=== PATIENT | male | born 1980 | race Caucasian/White ===

== ENCOUNTER 2023-05-08 10:21 | Emergency (ER) | payer OTHER, MEDICAID, SELFPAY ==
[2023-05-08 10:28] VITALS: BP 127/76; PULSE 76; RESP 17; TEMP 36.4; O2SAT 99; BMI 27.4
--- NOTE | 2023-05-08 10:32 | PC.NURSE ---
Patient reports he takes medication for BP. Does not know the name, obtains is by mail via the [employer].
--- NOTE | 2023-05-08 11:17 | ED.SKABFB ---
HPI - Skin/Abscess/Foreign Bdy <Brittney Pinzon PA-C - Last Filed: 05/08/23 11:24> General Chief complaint: Skin/Abscess/Foreign Body Stated complaint: Rash on face and chest Time Seen by Provider: 05/08/23 10:37 Source: patient Mode of arrival: Ambulatory History of Present Illness HPI narrative: 42-year-old male with no reported past medical history presents to the ED with several days of facial and chest rash. 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 Patient is here with his son relative is translating for the patient. 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 They state that the rash has been ongoing for the last few days, aggravated by exposure to the dust. There is also a small spot of the same rash on his chest. Patient describes the rash as itchy. Patient denies fever, chills, chest pain, shortness of breath, tongue swelling, lip swelling, throat swelling. Patient states that he might be allergic to some medicines, however does not recall what they are. Related Data Previous Rx's Medication Instructions Recorded triamcinolone acetonide 0.05 % 1 applic topical TID #110 grams 05/08/23 topical ointment Allergies Allergy/AdvReac Type Severity Reaction Status Date / Time No Known Drug Allergies Allergy Verified 05/08/23 10:32 Review of Systems <Brittney Pinzon PA-C - Last Filed: 05/08/23 11:24> Review of Systems ROS Unobtainable: All systems reviewed & are unremarkable except as noted in HPI and below Constitutional Constitutional: Denies chills, Denies fatigue, Denies fever(s), Denies frequent falls, Denies lethargy and Denies weakness Eyes Eyes: Denies change in vision, Denies eye discharge, Denies irritation and Denies loss of vision ENT Ears, Nose, Mouth, and Throat: Denies change in voice, Denies dizziness, Denies neck pain, Denies sore throat and Denies throat swelling Cardiovascular Cardiovascular: Denies chest pain, Denies irregular heart rhythm, Denies lightheadedness, Denies palpitations, Denies dyspnea, Denies dyspnea on exertion and Denies orthopnea Respiratory Respiratory: Denies cough, Denies dyspnea, Denies dyspnea on exertion and Denies wheezing Gastrointestinal Gastrointestinal: Denies abdominal pain, Denies change in bowel habits, Denies diarrhea, Denies nausea and Denies vomiting Genitourinary Genitourinary: Denies hematuria, Denies flank pain, Denies urinary incontinence and Denies urinary urgency Musculoskeletal Musculoskeletal: Denies back pain, Denies muscle weakness, Denies neck pain, Denies numbness and Denies tingling Integumentary/Breasts Skin/Breast: Denies pruritus, Denies erythema, Reports rash and Denies wounds Neurologic Neurologic: Denies behavioral changes, Denies confusion, Denies dizziness, Denies frequent falls, Denies loss of vision, Denies numbness, Denies tingling and Denies weakness Psychiatric Psychiatric: Denies anxiety, Denies behavioral changes, Denies confusion, Denies depression, Denies homicidal ideation and Denies suicidal ideation Endocrine Endocrine: Denies fatigue, Denies flushing and Denies palpitations Hematologic/Lymphatic Hematologic/Lymphatic: Denies easy bruising Allergic/Immunologic Allergic/Immunologic: Denies urticaria, Denies throat swelling and Denies wheezing Patient History <Brittney Pinzon PA-C - Last Filed: 05/08/23 11:24> Social History Smoking Status: Never smoker Smoking Status: Never smoker alcohol intake frequency: holidays/special occasions only Substance Use Type: does not use Exam <Brittney Pinzon PA-C - Last Filed: 05/08/23 11:24> Narrative Exam Narrative: Const General:?cooperative, healthy appearing and comfortable [facility] Head:?normal to inspection Ears:?hearing grossly normal bilaterally Nose:?external nose normal Face and sinus:?normal facial exam and sinuses nontender Mouth:?oral mucosae normal Throat:?posterior oropharynx normal Eyes General:?appearance normal, both eyes and all related structures Neck Neck:?normal visual inspection and no lymphadenopathy noted Resp Effort & Inspection:?normal respiratory effort Auscultation:?clear to auscultation bilaterally Cardio Rate:?regular rate Rhythm:?regular rhythm Integumentary There is a small area of rash lateral to the lateral canthus of bilateral eyes. There is also a small area of rash on the chest. There are no overt signs of infection. No discharge. Neuro General:?patient alert, patient awake and patient oriented x3 Initial Vital Signs Initial Vital Signs: Vital Signs Temperature 97.5 F L 05/08/23 10:28 Pulse Rate 76 05/08/23 10:28 Respiratory Rate 17 05/08/23 10:28 Blood Pressure 127/76 05/08/23 10:28 Pulse Oximetry 99 05/08/23 10:28 Oxygen Delivery Method Room Air 05/08/23 10:28 <Kassandra Wilcox MD - Last Filed: 05/08/23 19:07> Initial Vital Signs Initial Vital Signs: Vital Signs Temperature 97.5 F L 05/08/23 10:28 Pulse Rate 76 05/08/23 10:28 Respiratory Rate 17 05/08/23 10:28 Blood Pressure 127/76 05/08/23 10:28 Pulse Oximetry 99 05/08/23 10:28 Oxygen Delivery Method Room Air 05/08/23 10:28 Course <Brittney Pinzon PA-C - Last Filed: 05/08/23 11:24> Vital Signs Vital signs: Vital Signs - 8 hr 05/08/23 10:28 Temperature 97.5 F L Pulse Rate 76 Respiratory Rate 17 Blood Pressure 127/76 Pulse Oximetry 99 Oxygen Delivery Method Room Air <Kassandra Wilcox MD - Last Filed: 05/08/23 19:07> Vital Signs Vital signs: Vital Signs - 8 hr 05/08/23 10:28 Temperature 97.5 F L Pulse Rate 76 Respiratory Rate 17 Blood Pressure 127/76 Pulse Oximetry 99 Oxygen Delivery Method Room Air MDM - Skin/Abscess/Foreign Bdy <Brittney Pinzon PA-C - Last Filed: 05/08/23 11:24> MDM Narrative Medical decision making narrative: 42-year-old male with no reported past medical history presents to the ED with several days of facial and chest rash. Concern for contact dermatitis versus allergic dermatitis versus other. Advice Benadryl, Zyrtec, Claritin for symptoms. Will prescribe topical steroid ointment for the rash. No symptoms of anaphylaxis. Airway is patent. Recommend staying away from the allergens. Recommend follow-up with hair weaver if rash persists despite treatment. ED return precautions were discussed with patient and patient's son. They verbalized understanding. Medical records reviewed: Yes. Discharge Plan Departure Patient Disposition: Home Clinical Impression: Rash Instructions: DI for Rash Activity Restrictions/Additional Instructions: Were evaluated in the ED today for a rash. It is most likely that the dust that you are exposed to at work is contributing to your rash. You may take Benadryl if you experience extreme itchiness. Please be warned that it will make you sleepy, therefore refrain from operating heavy machinery or driving when you taking Benadryl. You may also take Claritin or Zyrtec which are nfen-bpa-bfbeyva allergy medications. These medications will not make you sleepy, you may take them daily. Please avoid exposure to the allergen. You were also being prescribed a steroid ointment to help with the rash. Please apply as prescribed. Please follow-up with a hair weaver if the rash does not resolve in the next few days. Return to the ED if you experience chest pain, shortness of breath, lip or tongue swelling. Prescriptions: New triamcinolone acetonide 0.05 % ointment 1 applic topical TID Qty: 110 0RF Stand Alone Forms: Patient Portal/API <Kassandra Wilcox MD - Last Filed: 05/08/23 19:07> Cosign ED Attending Cosignature Attestation: I did not see this patient. I was available at all times for consultation.
== END 2023-05-08 11:24 | disposition home or self-care (01) ==
PROVIDERS: Emergency Provider Student in an Organized Health Care Education/Training Program
DX: R21 Rash and other nonspecific skin eruption (principal)
CPT/HCPCS: 99281